=== PATIENT | male | born 1950 | race Caucasian/White ===

== ENCOUNTER 2017-09-21 10:39 | Observation (INO) ==
[2017-09-21] MEDS ORDERED: Ondansetron ODT 4 MG TAB.RAPDIS SL ONE (10:50)
--- NOTE | 2017-09-21 11:14 | Emergency Department Note ---
Disposition Clinical Impression: Benign paroxysmal positional vertigo Qualifiers: Laterality: unspecified laterality Qualified Code(s): H81.10 - Benign paroxysmal vertigo, unspecified ear Disposition: Admitted As Inpatient Condition: Fair Prescriptions: Ondansetron ODT [Zofran ODT] 4 mg SL Q6HR PRN #8 tab.rapdis PRN Reason: Nausea Meclizine HCl [Verticalm] 25 mg PO QID PRN #20 tablet PRN Reason: Vertigo Referrals: Jadon Bennett MD [Primary Care Provider] - (Call for recheck in one to 2 days if symptoms persist. If you continue with positional vertigo/dizziness, you may need referral to ENT for further evaluation.) Forms: ED Satisfaction Letter Dizziness HPI - General Chief Complaint: ED Dizziness Stated Complaint: Dizzness since 829 Time Seen by Provider: 09/21/17 10:44 Source: patient, EMS Mode of arrival: EMS Limitations: no limitations Nursing Notes Reviewed: Yes Vital Signs Reviewed: Yes - History of Present Illness HPI Narrative: Patient relates he started on Thursday with a feeling of some dizziness. He describes this as the "room spinning". He was evaluated for this yesterday evening with normal blood work and urinalysis. He this morning had worse symptoms and started having persistent nausea and vomiting prompting him to call the squad. He does report a little bit of a headache but he states that is normal from some chronic neck problems. He denies any type of fall or head injury denies any extremity numbness, tingling or weakness. He denies alteration in mental status or speech. He denies chest pain or palpitations. Reports he did have just a little bit of diarrhea without abdominal pain. He has not had medications to take for dizziness. Pt Subjective Complaint: dizziness Onset (ago): day(s) Timing: gradual onset, waxing/waning Description: "room spinning", off-balance History of similar episodes: Yes History of trauma: No Severity: moderate Improves with: remaining still Worsens with: movement, position Associated symptoms: Reports: nausea, vomiting. Denies: ataxia, chest pain, confusion, diaphoresis, fever, chills, malaise, rash, shortness of breath, syncope, weakness, vision changes, palpitations - Related Data Home Medications Medication Instructions Recorded Confirmed Lovastatin 40 mg PO DAILY 04/28/15 09/21/17 Tizanidine HCl 4 mg PO BID PRN 04/28/15 09/21/17 Carvedilol [Coreg] 25 mg PO BID 10/09/15 09/21/17 Tamsulosin [Flomax] 0.4 mg PO DAILY 10/09/15 09/21/17 Cholecalciferol (Vitamin D3) 5,000 unit PO DAILY 06/02/17 09/21/17 [Vitamin D] Diclofenac Sodium [Voltaren] 1 appl TP DAILY PRN 06/02/17 09/21/17 Lisinopril [Zestril] 10 mg PO DAILY 06/02/17 09/21/17 amLODIPine [Norvasc] 5 mg PO DAILY 06/02/17 09/21/17 raNITIdine HCl [Ranitidine HCl] 300 mg PO BID 06/02/17 09/21/17 Previous Rx's Medication Instructions Recorded hydrOXYzine HCl [Hydroxyzine HCl] 25 mg PO TID PRN #20 tab 08/15/17 Allergies Allergy/AdvReac Type Severity Reaction Status Date / Time No Known Allergies Allergy Verified 10/09/15 07:28 All systems ED: reviewed and negative except as stated. Past Medical History - Past Medical History Attestation: Yes The following information was validated with the patient. Source: patient, old records reviewed, nursing notes reviewed Medical history: Reports: hypertension Surgical history: Reports: appendectomy, orthopedic, other Psychiatric history: Reports: no psych history - Social History Smoking Status: Never smoker Smokeless Tobacco Status: No Alcohol use: Reports: none Drug use: Reports: none Physical Exam - General Limitations: no limitations General appearance: alert, in no apparent distress - Head Head exam: atraumatic, normocephalic, normal inspection - Eye Eye exam: Present: normal appearance, PERRL, EOMI. Absent: scleral icterus, conjunctival injection - ENT ENT exam: normal exam, normal oropharynx, mucous membranes moist, TM's normal bilaterally - Neck Neck exam: Present: normal inspection, full ROM, trachea midline. Absent: tenderness, lymphadenopathy - Chest Chest inspection: Present: normal inspection, symmetric chest wall rise - Respiratory Respiratory exam: Present: normal lung sounds bilaterally. Absent: respiratory distress, wheezes, prolonged expiratory phase - Cardiovascular Cardiovascular exam: Present: regular rate, normal rhythm, normal heart sounds - Abdominal Exam Abdominal exam: Present: soft, Non-Tender, normal bowel sounds. Absent: tenderness, distention, guarding, rebound, rigidity - Extremities Exam Extremities exam: Present: normal inspection, full ROM, normal capillary refill. Absent: tenderness, pedal edema - Expanded Lower Extremity Exam Neurovascular/Tendon exam: Present: normal capillary refill. Absent: motor deficit, sensory deficit, tendon deficit Gait: not tested/not observed - Back Exam Back exam: Present: normal inspection, full ROM. Absent: tenderness - Neurological Exam Neurological exam: Present: alert, oriented X3, CN II-XII intact, reflexes normal. Absent: motor sensory deficit - Psychiatric Psychiatric exam: Present: normal affect, normal mood. Absent: agitated, anxious - Skin Skin exam: Present: warm, dry, intact, normal color. Absent: rash, diaphoresis , pallor Course Course Narrative: I reviewed the patient's medical record. I do not believe any repeat low blood work or urinalysis will be helpful. His been maintained on monitor and he has normal heart rate without tachycardia, normal oxygenation and an easy respiratory rate with no apparent distress at rest. I have ordered him to receive a dose of meclizine as well as Zofran for nausea. CT head is been ordered to evaluate for any structural reason for vertigo/dizziness. If this is normal I believe he can continue with symptomatic management. 1215: Patient is continued with some positional vertigo and then sitting up. Vomiting again. His written to receive some IV fluids, Zofran and diazepam. His CT head is normal on my reading as well as per radiologist. I have placed a page to Dr. Mckenzie to discuss further inpatient hydration and treatment. I do not believe he will be able to be discharged home at this time as he is not showing adequate response to treatment. Vital Signs Temperature 97.8 F 09/21/17 10:40 Pulse Rate 60 09/21/17 10:40 Respiratory Rate 18 09/21/17 10:40 Blood Pressure 156/83 09/21/17 10:40 O2 Sat by Pulse Oximetry 95 09/21/17 10:40 Temperature 97.8 F 09/21/17 10:40 Pulse Rate 64 09/21/17 11:42 Respiratory Rate 14 09/21/17 11:42 Blood Pressure 155/94 09/21/17 11:42 O2 Sat by Pulse Oximetry 93 09/21/17 11:42 Oxygen Delivery Oxygen Delivery Room Air Dizziness - Differential Diagnosis Likely: benign paroxysmal positional vertigo. Unlikely: cerebellar infarct - Medical Records Medical records reviewed: Yes I reviewed the patient's medical records. - Radiology Data Radiology results reviewed: Yes I reviewed the patient's radiology results. CT head is performed. This is reviewed on bone and soft tissue windows. There is no evidence for acute intracranial bleed, shift, mass or edema. Mastoids and sinuses appear normal. There is no fracture evident. This is on my interpretation. Impressions Head CT 09/21/17 10:50 IMPRESSION: No acute intracranial abnormality. D/ / Shabana Kee MD / Shabana Kee MD Interpreting Provider: Shabana Kee MD
[2017-09-21] MEDS ORDERED: diazePAM 10 MG/2 ML SYRINGE IVP STA ×2 (11:46→14:24)
[2017-09-21] MEDS ORDERED: 0.9 % Sodium Chloride 1,000 ML IVC SCH (12:00)
[2017-09-21] MEDS ORDERED: VOLTAREN TP PRN (14:24)
[2017-09-21] MEDS ORDERED: hydrOXYzine pamoate 25 MG CAPSULE PO PRN (14:24)
[2017-09-21] MEDS ORDERED: diazePAM 2 MG TABLET PO PRN (14:24)
[2017-09-21] MEDS ORDERED: Naloxone 0.4 MG/ML INJ IVP PRN (14:24)
[2017-09-21] MEDS ORDERED: tiZANidine 4 MG TABLET PO PRN (14:24)
[2017-09-21] MEDS ORDERED: *HR* Promethazine 25 MG/ML VIAL IVP PRN (15:11)
[2017-09-21] MEDS ORDERED: Ondansetron 4 MG/2 ML VIAL IVP PRN (15:11)
[2017-09-21] MEDS ORDERED: *HR* LORazepam 2 MG/ML VIAL IVP PRN (15:13)
--- NOTE | 2017-09-21 15:22 | Internal Med History&Physical ---
Date of Encounter: 09/21/17 Time of Encounter: 14:50 Assessment and Plan (1) Vomiting Current visit: Yes Status: Acute He has been started on IV fluids. Anti-emetics will be given and further workup done as needed. Qualifiers: Vomiting type: unspecified Vomiting Intractability: intractable Nausea presence: with nausea Qualified Code(s): R11.2 - Nausea with vomiting, unspecified (2) Hypertension Current visit: No Status: Chronic Continue lisinopril and amlodipine. Qualifiers: Hypertension type: essential hypertension Qualified Code(s): I10 - Essential (primary) hypertension (3) CKD (chronic kidney disease) stage 3, GFR 30-59 ml/min Current visit: No Status: Chronic (4) Dizziness, nonspecific Current visit: No Status: Acute Scheduled Meclizine has been ordered. He was given diazepam in emergency room. Continue IV fluids. Internal Medicine - H&P: HPI Chief complaint: Vomiting and vertigo Admitted From: Emergency Dept Plans for Post Hospital Care: Home History of present illness: Mr. Rios is a 67 year old male who came to emergency room again for vomiting and vertigo. He had onset of vertigo the evening of September 18. He came to emergency room September 20 for evaluation. EKG and lab work were generally unremarkable. He was discharged home. But had ongoing symptoms following returning home. He developed vomiting the morning of September 21 so returned to emergency room and was admitted to [facility] floor for ongoing care needs. He states he still has significant nausea. He is actively vomiting during part of the history and physical. He denies abdominal pain. He reports a small amount of loose stool this morning. GI history is pertinent for GERD and NAFLD. Denies disorders of his liver gallbladder or exocrine pancreas. He had upper and lower endoscopy a few weeks ago with multiple colon polyps seen requiring polypectomy. Past Med Surg Social Fam HX - Past Medical History Medical history: hypertension Additional medical history: Bladder tumor Psychiatric history: no psych history - Past Surgical History Surgical History: appendectomy, orthopedic, other Additional surgical history: Bladder tumor removed 2016. Right knee scope X 2. Nose cancer - Social History Smoking Status: Never smoker Smokeless Tobacco Status: No Alcohol use: none Drug use: none Internal Medicine - H&P: Meds Lovastatin 40 mg PO DAILY 04/28/15 [History] Tizanidine HCl 4 mg PO BID PRN 04/28/15 [History] Carvedilol [Coreg] 25 mg PO BID 10/09/15 [History] Tamsulosin [Flomax] 0.4 mg PO DAILY 10/09/15 [History] Cholecalciferol (Vitamin D3) [Vitamin D] 5,000 unit PO DAILY 06/02/17 [History] Diclofenac Sodium [Voltaren] 1 appl TP DAILY PRN 06/02/17 [History] Lisinopril [Zestril] 10 mg PO DAILY 06/02/17 [History] amLODIPine [Norvasc] 5 mg PO DAILY 06/02/17 [History] raNITIdine HCl [Ranitidine HCl] 300 mg PO BID 06/02/17 [History] hydrOXYzine HCl [Hydroxyzine HCl] 25 mg PO TID PRN #20 tab 08/15/17 [Rx] 3 Allergy/AdvReac Type Severity Reaction Status Date / Time No Known Allergies Allergy Verified 10/09/15 07:28 All Systems PM: A 10-system review of systems was performed and is negative for pertinent findings except as documented above in the HPI. Review of systems: Gen.: His weight has increased from 99.836 kg on 10/16/2015 to 104.326 kg at present. Cardiovascular: Has history of hypertension but denies MN heart failure angina DVT or pulmonary embolus Respiratory: He is a lifelong nonsmoker and has no known chronic lung disease GI: As per history of present illness : He has CKD stage III and follows with a [facility] program manager. He had bladder cancer resected September 2015 which was curative. He denies prostate disorders. 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 He denies other anemia or malignancies Psychiatric: He denies anxiety depression or other mental health issues Musk skeletal: He has DJD. He has left shoulder and neck pain. - Constitutional Vitals: Temp Pulse Resp BP Pulse Ox 97.8 F 61 16 112/73 95 09/21/17 10:40 09/21/17 13:40 09/21/17 13:40 09/21/17 13:40 09/21/17 13:40 Exam: Gen.: He is a well-developed well-nourished male sitting on the side of bed who appears in mild discomfort. He is actively vomiting during the physical. HEENT: Head is atraumatic and normocephalic. Eyes: He only briefly opens his eyes stating makes vertigo worse when he opens them. Neck: There is no thyromegaly or adenopathy noted. Heart: Regular without murmurs gallops or ectopics Lungs: No wheezes or crackles are heard. Back: Straight without flank tenderness or presacral edema Abdomen: Exam is limited because he is in the seated position on the side of bed and actively vomiting. Extremities: There is no cyanosis edema or clubbing noted. Dorsalis pedis and posttibial pulses are trace palpable bilaterally. Neurologic: Mental status: He is able to answer questions appropriately and seems to be a reliable historian. Cranial nerves: Facial movements are minimal but symmetric. Motor: He moves his arms and legs well to observation without further formal testing done. Skin: Warm and dry - VTE Documentation of Mechanical Device: Graduated compression elastic hosiery
[2017-09-21] MEDS: 0.9 % Sodium Chloride 1,000 ML IVC SCH (20:06)
[2017-09-21] MEDS: Famotidine 20 MG TABLET PO SCH (20:06)
[2017-09-22] MEDS: 0.9 % Sodium Chloride 1,000 ML IVC SCH (04:06)
[2017-09-22 07:05] LABS: Basophils % 0.2 %; Eosinophils % 0.1 %; Hematocrit 39.8 % (37.5-50.1); Hemoglobin 13.9 g/dL (12.9-16.9); Immature Granulocytes % 0.3 % (0-4); Lymphocytes # 1.2 K/mcL (0.6-4.6); Lymphocytes % 12.8 %; Mean Corpuscular HGB Conc 34.9 g/dL (31.6-35.5); Mean Corpuscular Hemoglobin 31.8 pg (28.0-33.3); Mean Corpuscular Volume 91.1 fL (83.0-100.0); Mean Platelet Volume 9.6 fL (9.4-12.4); Monocytes # 0.8 K/mcL (0.0-1.3); Monocytes % 9.1 %; Neutrophils # 7.1 K/mcL (1.6-8.9); Platelet Count 223 K/mcL (140-400); Red Blood Count 4.37 M/mcL (4.19-5.50); Red Cell Distribution Width 12.2 % (11.5-14.5); Segmented Neutrophils % 77.5 %
[2017-09-22 07:20] LABS: Alanine Aminotransferase 24 Units/L (7-52); Albumin 4.1 g/dL (3.5-5.7); Alkaline Phosphatase 52 Units/L (34-104); Aspartate Amino Transferase 18 Units/L (13-39); BUN/Creatinine Ratio 13 (6-26); Bilirubin,Total 0.5 mg/dL (0.3-1.0); Blood Urea Nitrogen 17 mg/dL (8-23); Carbon Dioxide 27 mEq/L (23-29); Chloride 106 mEq/L (98-107); Globulin 2.1 g/dL (2.4-3.5); Glucose 109 mg/dL (70-105); Magnesium 1.9 mg/dL (1.6-2.6); Osmolality,Calculated 294 (280-300); Potassium 3.5 mEq/L (3.5-5.1); Sodium 141 mEq/L (136-145); Total Protein 6.2 g/dL (6.4-8.9); eGFR For Non-African Americans 54 (> 60)
[2017-09-22] MEDS: Famotidine 20 MG TABLET PO SCH ×2 (09:08→21:32)
[2017-09-22] MEDS: amLODIPine 5 MG TABLET PO SCH (09:09)
[2017-09-22] MEDS: Cholecalciferol (D-3) 1,000 UNIT TABLET PO SCH (09:11)
--- NOTE | 2017-09-22 10:37 | Internal Med Progress Note ---
Date of Encounter: 09/22/17 Time of Encounter: 10:25 - Assessment and plan (1) Vomiting Current Visit: Yes Status: Acute Assessment and plan: September 22. Continue IV fluids and prn anti-medics. Will advance diet. Anticipate discharge home tomorrow if improved. Qualifiers: Vomiting type: unspecified Vomiting Intractability: intractable Nausea presence: with nausea Qualified Code(s): R11.2 - Nausea with vomiting, unspecified (2) Hypertension Current Visit: No Status: Chronic Assessment and plan: September 22. Continue lisinopril, Coreg, and amlodipine. Qualifiers: Hypertension type: essential hypertension Qualified Code(s): I10 - Essential (primary) hypertension (3) CKD (chronic kidney disease) stage 3, GFR 30-59 ml/min Current Visit: No Status: Chronic Assessment and plan: September 22. Stable. (4) Dizziness, nonspecific Current Visit: No Status: Acute Assessment and plan: September 22. Continue present regimen. - Subjective Interval history: September 22. He has no new complaints. He is still dizzy but states his vomiting has subsided. - Constitutional Vitals: Temp Pulse Resp BP Pulse Ox 98.5 F 75 16 159/89 95 09/22/17 06:02 09/22/17 09:06 09/22/17 06:02 09/22/17 09:06 09/22/17 09:06 Exam: He is resting comfortably in bed and appears in no acute distress. His affect is cheerful. I reviewed his medications and lab results. Internal Medicine: Result - Labs CBC & Chem 7: 09/22/17 06:08 09/22/17 06:08 Labs: Short CBC 09/22/17 Range/Units 06:08 WBC 9.2 (4.3-11.1) K/mcL Hgb 13.9 (12.9-16.9) g/dL Hct 39.8 (37.5-50.1) % Plt Count 223 (140-400) K/mcL Neutrophils # 7.1 (1.6-8.9) K/mcL BMP 09/22/17 06:08 Sodium 141 Potassium 3.5 Chloride 106 Carbon Dioxide 27 BUN 17 Creatinine 1.31 H Glucose 109 H Calcium 9.0 Liver Function 09/22/17 Range/Units 06:08 Total Bilirubin 0.5 (0.3-1.0) mg/dL AST 18 (13-39) Units/L ALT 24 (7-52) Units/L Alkaline Phosphatase 52 (34-104) Units/L Albumin 4.1 (3.5-5.7) g/dL - VTE Documentation of Mechanical Device: Graduated compression elastic hosiery Consult Discharge Plan - Plan Referrals: Jadon Bennett MD [Primary Care Provider] - 1 week
[2017-09-22] MEDS: 0.45 % Sodium Chloride w/KCl 20 MEQ/1,000 ML MLS IVC SCH (13:24)
[2017-09-23] MEDS: 0.45 % Sodium Chloride w/KCl 20 MEQ/1,000 ML MLS IVC SCH (06:04)
[2017-09-23 07:15] VITALS: BP 139/82
[2017-09-23 07:28] LABS: BUN/Creatinine Ratio 12 (6-26); Blood Urea Nitrogen 16 mg/dL (8-23); Calcium 8.9 mg/dL (8.6-10.3); Carbon Dioxide 27 mEq/L (23-29); Chloride 105 mEq/L (98-107); Glucose 106 mg/dL (70-105); Osmolality,Calculated 296 (280-300); Potassium 3.7 mEq/L (3.5-5.1); Sodium 142 mEq/L (136-145); eGFR For Non-African Americans 52 (> 60)
[2017-09-23] MEDS: amLODIPine 5 MG TABLET PO SCH (08:24)
[2017-09-23] MEDS: Cholecalciferol (D-3) 1,000 UNIT TABLET PO SCH (08:28)
[2017-09-23] MEDS: Famotidine 20 MG TABLET PO SCH (08:28)
--- NOTE | 2017-09-23 10:22 | Discharge Summary ---
Date of Encounter: 09/23/17 Time of Encounter: 10:10 - Discharge Diagnosis (1) Acute gastroenteritis Priority: Primary Status: Acute (2) Hypertension Priority: Secondary Status: Chronic Qualifiers: Hypertension type: essential hypertension Qualified Code(s): I10 - Essential (primary) hypertension (3) CKD (chronic kidney disease) stage 3, GFR 30-59 ml/min Priority: Secondary Status: Chronic (4) Dizziness, nonspecific Priority: Secondary Status: Acute Hospital course: Mr. Rios is a 67 year old male who came to emergency room again for vomiting and vertigo. He had onset of vertigo the evening of September 18. He came to emergency room September 20 for evaluation. EKG and lab work were generally unremarkable. He was discharged home. But had ongoing symptoms following returning home. He developed vomiting the morning of September 21 so returned to emergency room and was admitted to [facility] for ongoing care needs. Initial orders were written by the emergency room physician. I saw him on September 21 and performed a history and physical. He was given IV fluids. Anti- emetics were given when necessary. He had no further vomiting after the first hospital day. He was able to tolerate adequate amount of food and fluids. His vertigo improved but was still present at time of discharge. He was able to ambulate to the bathroom with the assistance of his . When I saw him on September 23 I felt he was stable for discharge home. He will use meclizine on a scheduled basis for the next 24 hours and then use prn. He will also be given Valium and Zofran for prn use. He will follow with his PCP Dr. Jadon Bennett within 1 week. - Time Spent with Patient Total time spent providing and/or coordinating discharge services: - Discharge Medications Prescriptions: diazePAM [Valium] 2 mg PO TID PRN 2 Days #6 tablet PRN Reason: Vertigo Meclizine HCl [Verticalm] 25 mg PO Q6H PRN #12 tablet PRN Reason: Vertigo Ondansetron [Zofran] 4 mg PO Q4H #6 tablet Home Medications: Lovastatin 40 mg PO DAILY 04/28/15 [History] Tizanidine HCl 4 mg PO BID PRN 04/28/15 [History] Carvedilol [Coreg] 25 mg PO BID 10/09/15 [History] Tamsulosin [Flomax] 0.4 mg PO DAILY 10/09/15 [History] Cholecalciferol (Vitamin D3) [Vitamin D3] 5,000 unit PO DAILY 06/02/17 [History] Diclofenac Sodium [Voltaren] 1 appl TP DAILY PRN 06/02/17 [History] Lisinopril [Zestril] 10 mg PO DAILY 06/02/17 [History] amLODIPine [Norvasc] 5 mg PO DAILY 06/02/17 [History] raNITIdine HCl [Ranitidine HCl] 300 mg PO BID 06/02/17 [History] hydrOXYzine HCl [Hydroxyzine HCl] 25 mg PO TID PRN #20 tab 08/15/17 [Rx] Meclizine HCl [Verticalm] 25 mg PO Q6H PRN #12 tablet 09/23/17 [Rx] Ondansetron [Zofran] 4 mg PO Q4H #6 tablet 09/23/17 [Rx] diazePAM [Valium] 2 mg PO TID PRN 2 Days #6 tablet 09/23/17 [Rx] Allergies/Adverse Reactions: 3 Allergy/AdvReac Type Severity Reaction Status Date / Time No Known Allergies Allergy Verified 10/09/15 07:28 Date of admission: 09/21/17 12:47 Primary care physician: Jadon Bennett MD - Constitutional Vitals: Temp Pulse Resp BP Pulse Ox 98.4 F 62 16 139/82 93 09/23/17 07:10 09/23/17 07:10 09/23/17 07:10 09/23/17 07:10 09/23/17 07:10 - Patient Status Disposition: Home, Self-Care Condition: Fair Overall status at discharge: patient is progressing back to baseline - Discharge Instructions Follow Up With: Jadon Bennett MD [Primary Care Provider] - 1 week - Diet and Activity Activity: resume usual activities as tolerated Diet: advance to your usual diet - VTE Documentation of Mechanical Device: Graduated compression elastic hosiery
== END 2017-09-23 11:05 | disposition home or self-care (01) ==
LOC: EMEROOPIK 10:39 → INPPIK 10:39
PROVIDERS: ADMIT Internal Medicine; ATTEND Internal Medicine